=== PATIENT | male | born 1985 | race Two or more races ===

== ENCOUNTER 2022-02-28 03:42 | Emergency (ER) | payer OTHER ==
[~2022-02-28] VITALS: Ht 188 cm; Wt 127.0 kg
[2022-02-28 04:00] VITALS: BP 150/98
== END 2022-02-28 05:36 | disposition home or self-care (01) ==
LOC: ER 03:42
DX: S46.911A Strain of unspecified muscle, fascia and tendon at shoulder and upper arm level, right arm, initial encounter (principal); M25.551 Pain in right hip; V59.49XA Driver of pick-up truck or van injured in collision with other motor vehicles in traffic accident, initial encounter; Y93.89 Activity, other specified; Y92.488 Other paved roadways as the place of occurrence of the external cause; Y99.8 Other external cause status
CPT/HCPCS: 73030; 73502